=== PATIENT | male | born 1955 | race Caucasian/White ===

== ENCOUNTER 2018-01-01 12:55 | Emergency (ER) | payer BC ==
--- NOTE | 2018-01-01 13:54 | ED ---
HPI Febrile Illness - HPI Summary HPI Summary: This is scribe Socorro Suero documenting for attending Sixto Riley MD. This patient is a 62 year old M presenting to [facility] accompanied by his with a chief complaint of chills and nausea beginning at 07:00 this morning. Patient states symptoms began with chills and shortly after developed nausea . He reports body aches with some relief from a couple of Alieve. He additionally reports chest pressure and fatigue. Denies cough, sore throat, ear pain, diarrhea, constipation, and dysuria. PMHx includes borderline [place] and dyslipidemia. I, Dr. Riley, personally performed the services described in this documentation as scribed in my presence and it is both accurate and complete. - History of Current Complaint Chief Complaint: EDGeneral Time Seen by Provider: 01/01/18 13:26 Hx Obtained From: Patient Onset/Duration: Started Hours Ago Time of Onset: 07:00 Timing: Constant Initial Severity: Moderate Current Severity: Mild Pain Intensity: 0 Pain Scale Used: 0-10 Numeric Alleviating Factors: OTC Medicine Associated Signs and Symptoms: Chills - shivering, Myalgia, Nausea, Weakness - Allergy/Home Medications Allergies/Adverse Reactions: Allergies Allergy/AdvReac Type Severity Reaction Status Date / Time No Known Allergies Allergy Verified 01/01/18 13:05 Home Medications: Home Medications Ibuprofen TAB* [Advil TAB*] 200 mg PO Q6H PRN 01/01/18 [History Confirmed ] PMH/Surg Hx/FS Hx/Imm Hx Cardiovascular History: Reports: Hx Hypercholesterolemia, Hx Myocardial Infarction - "borderline" History: Denies: Hx Acute Renal Failure EENT History: Denies: Hx Deafness - Surgical History Surgery Procedure, Year, and Place: bilateral knee arthoscopy Infectious Disease History: No Infectious Disease History: Denies: Traveled Outside the [place] in Last 30 Days - Family History Known Family History: Positive: Cardiac Disease - father of [place], Hypertension - Social History Alcohol Use: Weekly Substance Use Type: Reports: None Smoking Status (MU): Former Smoker Review of Systems Positive: Chills, Fatigue Negative: Sore Throat, Ear Ache Positive: Other - chest tightness Negative: Cough Positive: Vomiting, Nausea. Negative: Diarrhea Negative: dysuria Positive: Myalgia All Other Systems Reviewed And Are Negative: Yes Physical Exam - Summary Physical Exam Summary: VITAL SIGNS: Reviewed. GENERAL: Patient is a well-developed and nourished male who is lying comfortable in the stretcher. Patient is not in any acute respiratory distress. Patient is warm to touch, HEAD AND FACE: No signs of trauma. No ecchymosis, hematomas or skull depressions. No sinus tenderness. EYES: PERRLA, EOMI x 2, No injected conjunctiva, no nystagmus. EARS: Hearing grossly intact. Ear canals and tympanic membranes are within normal limits. MOUTH: Oropharynx within normal limits. NECK: Supple, trachea is midline, no adenopathy, no JVD, no carotid bruit, no c- spine tenderness, neck with full ROM. CHEST: Symmetric, no tenderness at palpation LUNGS: Clear to auscultation bilaterally. No wheezing or crackles. CVS: Regular rate and rhythm, S1 and S2 present, no murmurs or gallops appreciated. ABDOMEN: Soft, non-tender. No signs of distention. No rebound no guarding, and no masses palpated. Bowel sounds are normal. EXTREMITIES: FROM in all major joints, no edema, no cyanosis or clubbing. NEURO: Alert and oriented x 3. No acute neurological deficits. Speech is normal and follows commands. SKIN: Dry and warm Triage Information Reviewed: Yes Vital Signs On Initial Exam: Initial Vitals Temp Pulse Resp BP Pulse Ox 98.7 F 90 16 127/88 98 01/01/18 13:03 01/01/18 13:03 01/01/18 13:03 01/01/18 13:03 01/01/18 13:03 Vital Signs Reviewed: Yes Diagnostics - Vital Signs Vital Signs Temp Pulse Resp BP Pulse Ox 01/01/18 13:41 99.3 F 01/01/18 13:37 96 01/01/18 13:03 98.7 F 90 16 127/88 98 - Laboratory Result Diagrams: 01/01/18 14:00 01/01/18 14:00 Lab Statement: Any lab studies that have been ordered have been reviewed, and results considered in the medical decision making process. - Radiology CXR Radiology Interpretation Completed By: Radiologist - No evidence for acute intrathoracic disease. ED Physician has reviewed this report. - EKG 1354 Cardiac Rate: Tachycardia - 101 BPM EKG Rhythm: Sinus Tachycardia EKG Interpretation: no STEMI Course/Dx - Course Assessment/Plan: Patient is a 62-year-old male who presents to the emergency department with a chief complaint of having chills and weakness. Patient reports that he started having the symptoms this morning and continued throughout the day therefore he decided to come to the urgent further workup and management. Blood test result shows a what was a count of 14.1, he is a 21 , glucose 182, lactic acid is 2.3, CRP of 19.6, urinalysis positive for UTI. In the ED course the patient was given IV fluids and the patient was given Rocephin. After these medications the patients symptoms have significantly improved. The patient is no longer tachycardic or febrile. Therefore the patient will be discharged home with follow-up with primary care physician. The patient will be given a prescription for ciprofloxacin. I discussed all the findings and test results with the patient. Patient was instructed to return to the emergency room immediately if any of the symptoms return or worsens. Plan of care was discussed with the patient and understands and agrees. All questions were answered at patient satisfaction. There were no further complaints or concerns. Lung exam before discharge: CTA B/L. Good air exchange. No wheezing or crackles heard. CVS: S1 and S2 present. No murmurs appreciated. Patient is alert and oriented x 3. Patient is hemodynamically stable. Patient will be discharged home with follow up PCP in the next 2-3 days - Diagnoses Provider Diagnoses: UTI (urinary tract infection) Discharge - Sign-Out/Discharge Documenting (check all that apply): Patient Departure - discharge - Discharge Plan Condition: Stable Disposition: HOME Prescriptions: Ciprofloxacin TAB* [Cipro 500 MG TAB*] 500 mg PO BID #10 tab Patient Education Materials: Urinary Tract Infection in Men (ED) Referrals: Anshu Smith NP [Primary Care Provider] - 2 Days Additional Instructions: RETURN TO THE EMERGENCY DEPARTMENT FOR CHANGING OR WORSENING SYMPTOMS.
[2018-01-01] MEDS: NS 0.9% 1000 ML* 1,000 ML IV SCH ×2 (14:14→15:27)
[2018-01-01 14:16] LABS: ABS Basophils 0 10^3/ul (0-0.2); ABS Eosinophils 0 10^3/ul (0-0.6); ABS Lymphocytes 0.6 10^3/ul (1.0-4.8); ABS Monocytes 0.6 10^3/ul (0-0.8); ABS Neutrophils 12.9 10^3/ul (1.5-7.7); ABS Nucleated RBC 0 10^3/ul; Eosinophil % 0 % (0-6); Hematocrit 45 % (42-52); Hemoglobin 15.2 g/dl (14.0-18.0); Lymphocyte % 4.1 % (25-47); Mean Corpuscular HGB Conc 34 g/dl (31-36); Mean Corpuscular Hemoglobin 29 pg (27-31); Mean Corpuscular Volume 88 fL (80-94); Mean Platelet Volume 9.6 um3 (7.4-10.4); Nucleated Red Blood Cells % 0.1; Platelet Count 156 10^3/ul (150-450); Red Blood Count 5.17 10^6/ul (4.00-5.40); Red Cell Distribution Width 14 % (10.5-15); White Blood Count 14.1 10^3/ul (3.5-10.8)
[2018-01-01 14:26] LABS: INR 0.96 (0.77-1.02)
--- NOTE | 2018-01-01 14:36 | RAD ---
INDICATION: Shivers. Nausea. Unexplained diaphoresis lately. COMPARISON: No relevant prior exams available on the [facility] PACS for comparison. TECHNIQUE: Dual energy PA and routine lateral views of the chest were obtained. REPORT: Mild prominence of interstitial markings. No focal pulmonary lesion, compelling alveolar consolidation, pleural effusion, pneumothorax. The heart, pulmonary vasculature, and mediastinal contours are unremarkable. Negative for free air beneath the diaphragm. Unremarkable osseous structures for age. IMPRESSION: #. No evidence for acute intrathoracic disease.
[2018-01-01 14:43] LABS: EGFR Non-African American 76.1 (>60)
[2018-01-01] MEDS ORDERED: NS 0.9% 1000 ML* 1,000 ML IV ONE (15:15)
[2018-01-01 15:56] LABS: Urine Appearance Clear; Urine Blood Negative (Negative); Urine Color Yellow; Urine Ketones Trace (Negative); Urine Protein Negative (Negative); Urine Red Blood Cell 1+(3-5/hpf) (Absent); Urine Specific Gravity 1.013 (1.010-1.030); Urine Urobilinogen Negative (Negative); Urine White Blood Cell 2+(11-20/hpf) (Absent)
[2018-01-01] MEDS ORDERED: cefTRIAXone(*) 1 GM in NS 0.9% 50 ML* 50 ML IVPB ONE (16:20)
[2018-01-01 17:50] VITALS: BP 141/92
== END 2018-01-01 17:49 | disposition home or self-care (01) ==
LOC: ED 12:55
DX: N39.0 Urinary tract infection, site not specified (principal); R00.0 Tachycardia, unspecified; I25.2 Old myocardial infarction; E78.5 Hyperlipidemia, unspecified; Z87.891 Personal history of nicotine dependence
CPT/HCPCS: 36415; 71046; 80053; 81003; 81015; 82550; 83605; 83880; 84145; 84484; 85025; 85384; 85610; 85652; 85730; 86140; 87040; 87086; 93005; 96361; 96374; 99283; J0696

== ENCOUNTER 2018-12-11 10:14 | Observation (INO) | payer BC ==
[2018-12-11] MEDS ORDERED: fentaNYL* 50 MCG/ML 2 ML VIAL (100 MCG VIAL) ONE (12:27)
[2018-12-11] MEDS ORDERED: Lidocaine 1% INJ* 10 MG/ML 30 ML SDV ONE (12:28)
[2018-12-11] MEDS ORDERED: VERAPAMIL 2.5 MG/ML 2 ML VIAL ** 5 mg/2 ml ONE (12:28)
[2018-12-11] MEDS ORDERED: Iohexol 350 (CONTRAST) 200 ML MDV IV ONE ×2 (12:28→12:46)
[2018-12-11] MEDS ORDERED: Midazolam* 1 MG/ML 5 ML VIAL (5 MG) ONE (12:28)
[2018-12-11] MEDS ORDERED: nitroGLYCERIN DRIP* 25,000 MCG/250 ML BTL ONE (12:28)
[2018-12-11] MEDS ORDERED: Heparin(*) 1000 UNIT/ML 10 ML VIAL CATH LAB IV ONE ×2 (12:28→13:44)
[2018-12-11] MEDS ORDERED: Heparin 2 UNITS/ML IVPREMIX* 2,000 UNIT/1,000 ML BAG IV ONE (12:29)
[2018-12-11] MEDS ORDERED: Ticagrelor* 90 MG TAB PO ONE (13:27)
[2018-12-11] MEDS ORDERED: Nitroglycerin TAB 0.4 MG* 0.4 MG TAB SL PRN (14:13)
[2018-12-11] MEDS ORDERED: NS 0.9% 1000 ML** 1,000 ML IV SCH (14:15)
[2018-12-11] MEDS: Captopril TAB* 12.5 MG PO SCH ×2 (15:40→20:41)
[2018-12-11] MEDS ORDERED: Atorvastatin* 80 MG TAB PO SCH (17:00)
[2018-12-11] MEDS: Ticagrelor* 90 MG TAB PO SCH (20:41)
[2018-12-12 06:09] LABS: BUN/Creatinine Ratio 18.1 (8-20); Calcium 9.2 mg/dL (8.6-10.3); EGFR African American 112.5 (>60); Potassium 4.1 mmol/L (3.5-5.0)
[2018-12-12 07:08] LABS: Hepatitis C Antibody Negative (Negative)
[2018-12-12] MEDS: Captopril TAB* 12.5 MG PO SCH (08:09)
[2018-12-12] MEDS: Ticagrelor* 90 MG TAB PO SCH (08:09)
[2018-12-12] MEDS ORDERED: Aspirin 81 mg CHEW TAB* 81 MG TAB.CHEW PO SCH (09:00)
[2018-12-12] MEDS ORDERED: Metoprolol Succinate XL TAB* 25 MG PO SCH (09:00)
[2018-12-12 09:02] VITALS: BP 126/76
--- NOTE | 2018-12-12 11:40 | CATH ---
CC: Dr. Rangel; Anshu Smith NP STENT REPORT: DATE OF PROCEDURE: 12/11/18 PRIMARY CARE PHYSICIAN: Anshu Smith NP BAND TOP MAKER: Dr. Rangel. PROCEDURE ACCESS: Right radial artery, bilateral selective coronary cineangiography, stent placement LAD, mid 2.75 x 24 drug-eluting stent, proximal 3 x 20 drug-eluting stent. HISTORY: A 63-year-old newly diagnosed diabetic with obesity, hypertension, and LDL in excess of 200 referred for coronary angiography for unstable angina with progressively decreasing threshold culmin ating in rest pain. RASHAUN scan, 12/03/18, revealed a moderately large apical defect, read as high ris k. He was referred for outpatient coronary angiography. PROCEDURE ACCESS: Right radial artery sheath 6F Slender. DIAGNOSTIC CATHETERS: 5F TIG4, 5FL 3.5. GUIDING CATHETER: LAD 6F VL3.5, which was slightly too long, but provided excellent back up. It was used with a 14 BMW wire to primarily stent the mid and proximal LAD with a 2.75 x 24 and 3 x 20 Syne rgy drug-eluting stent respectively. Each stent was post dilated with an NC balloon, the mid to 20 at mospheres with a 2.75 x 20 mm balloon, with an overlapping additional 20 atmosphere inflation. The p roximal was post dilated with a 3 x 20 NC balloon to 18 atmospheres. Hemostasis was achieved with a HemoBand. HEMODYNAMICS: Initial LV 115/4, on pullback there is a 20 mm [id number] gradient with LV of 128/12 -17, AO of 107/72. ANGIOGRAPHY: RCA: The RCA is large, dominant, with a moderate PDA, which has a mid, fairly short 50% stenosis. Just beyond the PDA, RCA continuation has a discrete 70% stenosis before distal RCA suppl ies 2 small posterolaterals. RCA was not intervened upon as imaging did not report inferior ischemia . Left Main: The left main has minimal irregularity, no stenosis. LAD: The LAD is large, has a long tubular proximal 75% stenosis before the first septal, then recons titutes, has heavy calcification. Beyond the reconstitution, there is a moderate diagonal, which has minor luminal irregularity. After the diagonal the LAD has a relatively discrete 70% stenosis, foll owed by some tapering with reconstitution. Distal LAD has scattered mild luminal irregularity. Circumflex: The circumflex is not dominant, large, with a large ramus branch which has luminal irreg ularity, but no significant stenosis. Circumflex then supplies a large first marginal which has chetna nal irregularity without significant stenosis. Circumflex ends with a small posterolateral. The OM has at most 50% stenosis. After LAD stent placement, post dilatation of 2 sites, antegrade flow is TABATHA-3. There is no residual stenosis. The diagonal was not compromised. There is no dissection. CONCLUSION: 1. Two-vessel disease with anterior apical ischemia by imaging, excellent angiographic result with p lacement of 2 drug-eluting stents. RCA was not treated as there was no inferior ischemia on imaging. 2. Successful right radial artery access. 3. Mild aortic stenosis by pullback. [id number]/[facility] #: [id number]
[2018-12-12] MEDS ORDERED: Lisinopril TAB* 5 MG PO SCH (12:00)
--- NOTE | 2018-12-12 13:46 | DS ---
CC: Anshu Smith NP; Dr. Rangel. DISCHARGE SUMMARY: DATE OF ADMISSION: 12/11/18 DATE OF DISCHARGE: 12/12/18 PRIMARY CARE PROVIDER: Anshu Smith NP. CARDIOLOGY: Dr. Rangel. DISCHARGE DIAGNOSES: 1. Unstable angina. 2. Diabetes mellitus type 2, new diagnosis. 3. Obesity. 4. Hypertension. 5. Hyperlipidemia. PROCEDURE: Cardiac cath, stent placement LAD, mid 2.75 x 24 Synergy drug-eluting stent, proximal LA D 3 x 20 Synergy drug-eluting stent. CONDITION ON DISCHARGE: Stable. DISPOSITION: Discharge to home. DIET: Low fat, low cholesterol, diabetic. FOLLOWUP: Wrist check with Dr. Tucker next week, as scheduled. The patient to contact Anshu Smith NP, to discuss newly diagnosed diabetes and management. DISCHARGE MEDICATIONS: 1. Aspirin 81 mg daily. 2. Lipitor 80 mg daily. 3. Lisinopril 5 mg daily. 4. Toprol XL 25 daily. 5. Nitroglycerin 0.4 sublingual p.r.n. 6. Brilinta 90 b.i.d. WOUND CARE: Shower only for 3 days. ACTIVITY: To avoid strenuous use of right upper extremity for 3 days. HISTORY: See H and P. LABORATORY DATA: CBC on 12/09/18 was unremarkable. His chemistries pre cath, on 12/09/18, were nota ble only for high blood sugar of 144. Hemoglobin A1c run on that blood sample was high at 9.3 consis [address] with a new diagnosis of diabetes. Lipids on that day, total cholesterol high at 313, triglycerid es 198, LDL high at 223, HDL 50.3. He was apparently just started on Lipitor 10. HOSPITAL COURSE: He underwent outpatient catheterization via the radial approach without complicatio ns for evaluation of progressive angina culminating in rest pain, angina class IV. Stress imaging sh owed high-risk anterior apical defect. Cath confirmed significant LAD disease, which was stented, as above. He had moderate RPDA stenosis as well as distal right stenosis, this was not intervened upon as imaging did not report any inferior ischemia. He was found to be diabetic, which is a new diagnos is, had instructions regarding weight loss, activity, and diet. He will follow this with Anshu pimentel. He was also found to have marked hyperlipidemia and was started on high doses potent statin ther apy. His Norvasc was discontinued, he was started on MICHAEL inhibitor for hypertension control as well as the fact that he is diabetic, and for endothelial function improvement. He received full discharg e instructions. Post procedure he has been stable without any recurrence of chest pain, has not had any wrist issues. Exam today is unremarkable, vitals are stable. Post procedure labs are unremarkab le, as is his EKG. He is being discharged with outpatient followup with a wrist check next week, wit h subsequent followup with Dr. Rangel. The patient was also advised to contact Anshu Smith NP, to initiate diabetic management. He received instructions regarding cardiac rehab, activity, meds, followup, etc. [id number]/[facility] #: [id number]
== END 2018-12-12 12:58 | disposition home or self-care (01) ==
LOC: CHICATH 10:14 → ICU 14:13
PROVIDERS: ADMIT Internal Medicine Cardiovascular Disease; ATTEND Internal Medicine Cardiovascular Disease
DX: I20.0 Unstable angina (principal); I24.9 Acute ischemic heart disease, unspecified; R06.02 Shortness of breath; R07.9 Chest pain, unspecified; I10 Essential (primary) hypertension; E11.9 Type 2 diabetes mellitus without complications; E66.9 Obesity, unspecified; E78.5 Hyperlipidemia, unspecified; Z79.82 Long term (current) use of aspirin; Z79.899 Other long term (current) drug therapy; G47.30 Sleep apnea, unspecified
CPT/HCPCS: 36415; 80048; 85347; 86803; 87641; 93005; 93458; 99156; 99157; A9270-GY; C1725; C1769; C1876; C1887; C9600-LD; G0378; J1644; J2250; J3010